=== PATIENT | female | born 1945 ===

== ENCOUNTER 2018-11-12 13:46 | Outpatient (CLI) | payer OTHER | END 2018-11-12 13:49 | disposition home or self-care (01) | LOC: SONOGRAMA 13:46 | DX: E04.8 Other specified nontoxic goiter (principal) ==

== ENCOUNTER 2018-12-12 07:22 | Outpatient (CLI) | payer OTHER | END 2018-12-12 07:30 | disposition home or self-care (01) | LOC: RX STUDY 07:22 | DX: K21.9 Gastro-esophageal reflux disease without esophagitis (principal) ==